=== PATIENT | female | born 1965 | race Caucasian/White ===

== ENCOUNTER 2020-01-08 11:40 | Inpatient (IN) | payer OTHER ==
[2020-01-08] MEDS ORDERED: ACETAMINOPHEN TAB 500 MG TAB PO STA (12:02)
[2020-01-08] MEDS ORDERED: LORazepam 2 MG/ML INJ IV STA (12:03)
--- NOTE | 2020-01-08 12:06 | ED ---
General Adult HPI - General Chief complaint: Shortness of Breath Stated complaint: SOB Time Seen by Provider: 01/08/20 11:45 Source: patient, RN notes reviewed, old records reviewed Mode of arrival: wheelchair Limitations: no limitations - History of Present Illness Initial comments: This a 55-year-old female who presents emergency Department complaining of shortness of breath for 2 days and a low-grade fever as of yesterday. Patient states she's also been very fatigued. Patient states she has been moving for the last few days and is moving out of state to [place]. Patient states she's been under quite a bit of stress and has had a couple of panic attacks as well. Patient also has noticed her heart rate is racing. Patient denies any chest p ain but she states she does feel like it's tight in her chest when she has been having a panic attacks. Patient denies any abdominal pain patient denies nausea vomiting diarrhea. Patient has a headache patient denies numbness weakness. Patient denies any swelling to the legs or calf tenderness. - Related Data Home Medications Medication Instructions Recorded Confirmed No Known Home Medications 01/08/20 01/08/20 Allergies Allergy/AdvReac Type Severity Reaction Status Date / Time Sulfa (Sulfonamide Allergy Rash/Hives Verified 01/08/20 14:41 Antibiotics) Review of Systems ROS Statement: Those systems with pertinent positive or pertinent negative responses have been documented in the HPI. ROS Other: All systems not noted in ROS Statement are negative. Past Medical History Past Medical History: No Reported History History of Any Multi-Drug Resistant Organisms: None Reported Past Surgical History: Section Past Psychological History: Anxiety Smoking Status: Former smoker Past Alcohol Use History: Occasional Past Drug Use History: None Reported General Exam - General Exam Comments Initial Comments: GENERAL: Patient is well-developed and well-nourished. Patient is nontoxic and well- hydrated and is in mild distress. ENT: Neck is soft and supple. No significant lymphadenopathy is noted. Oropharynx is clear. Moist mucous membranes. Neck has full range of motion without eliciting any pain. EYES: The sclera were anicteric and conjunctiva were pink and moist. Extraocular movements were intact and pupils were equal round and reactive to light. Eyelids were unremarkable. PULMONARY: Unlabored respirations. Good breath sounds bilaterally. No audible rales rhon chi or wheezing was noted. CARDIOVASCULAR: Patient is tachycardic ABDOMEN: Soft and nontender with normal bowel sounds. SKIN: Skin is clear with no lesions or rashes and otherwise unremarkable. NEUROLOGIC: Patient is alert and oriented x3. Cranial nerves II through XII are grossly intact. Motor and sensory are also intact. Normal speech, volume and content. Symmetrical smile. MUSCULOSKELETAL: Normal extremities with adequate strength and full range of motion. LYMPHATICS: No significant lymphadenopathy is noted PSYCHIATRIC: Normal psychiatric evaluation. Limitations: no limitations Course Vital Signs 01/08/20 01/08/20 01/08/20 11:42 11:58 12:00 Temperature 100.1 F H Pulse Rate 131 H Respiratory 22 18 18 Rate Blood Pressure 122/75 O2 Sat by Pulse 92 L 93 L 93 L Oximetry 01/08/20 01/08/20 01/08/20 12:30 13:00 13:30 Temperature Pulse Rate 110 H 102 H 92 Respiratory 18 18 16 Rate Blood Pressure 119/82 116/74 O2 Sat by Pulse 96 97 97 Oximetry 01/08/20 01/08/20 14:00 14:22 Temperature 98.5 F Pulse Rate 86 Respiratory 18 Rate Blood Pressure O2 Sat by Pulse 98 Oximetry Medical Decision Making - Medical Decision Making EKG shows sinus tachycardia 160 bpm SC interval 124 tresses 80 QT interval 308 QTC is 428. Patient's EKG shows no ST segment elevation or depression. Chest x-ray shows groundglass infiltrate. Computed tomography scan shows no pulmonary embolism but does show bilateral infiltrates. - Lab Data Result diagrams: 01/08/20 12:12 01/08/20 12:12 Lab Results 01/08/20 01/08/20 01/08/20 Range/Units 12:12 12:12 12:12 WBC 16.2 H (3.8-10.6) k/uL RBC 4.87 (3.80-5.40) m/uL Hgb 15.4 (11.4-16.0) gm/dL Hct 46.8 H (34.0-46.0) % MCV 96.2 (80.0-100.0) fL MCH 31.6 (25.0-35.0) pg MCHC 32.9 (31.0-37.0) g/dL RDW 12.6 (11.5-15.5) % Plt Count 303 (150-450) k/uL Neutrophils % 91 % Lymphocytes % 4 % Monocytes % 2 % Eosinophils % 3 % Basophils % 0 % Neutrophils # 14.8 H (1.3-7.7) k/uL Lymphocytes # 0.6 L (1.0-4.8) k/uL Monocytes # 0.3 (0-1.0) k/uL Eosinophils # 0.5 (0-0.7) k/uL Basophils # 0.0 (0-0.2) k/uL PT 9.7 (9.0-12.0) sec INR 0.9 (<1.2) APTT 26.5 (22.0-30.0) sec D-Dimer 0.87 H (<0.60) mg/L FEU Sodium 133 L (137-145) mmol/L Potassium 4.4 (3.5-5.1) mmol/L Chloride 100 (98-107) mmol/L Carbon Dioxide 23 (22-30) mmol/L Anion Gap 10 mmol/L BUN 6 L (7-17) mg/dL Creatinine 0.51 L (0.52-1.04) mg/dL Est GFR (CKD-EPI)AfAm >90 (>60 ml/min/1.73 sqM) Est GFR (CKD-EPI)NonAf >90 (>60 ml/min/1.73 sqM) Glucose 101 H (74-99) mg/dL Plasma Lactic Acid Ron (0.7-2.0) mmol/L Calcium 9.3 (8.4-10.2) mg/dL Magnesium 1.8 (1.6-2.3) mg/dL Total Bilirubin 1.0 (0.2-1.3) mg/dL AST 20 (14-36) U/L ALT 18 (4-34) U/L Alkaline Phosphatase 64 (38-126) U/L Lactate Dehydrogenase 477 (313-618) U/L C-Reactive Protein 210.9 H (<10.0) mg/L Total Protein 7.1 (6.3-8.2) g/dL Albumin 4.2 (3.5-5.0) g/dL 01/08/20 Range/Units 12:12 WBC (3.8-10.6) k/uL RBC (3.80-5.40) m/uL Hgb (11.4-16.0) gm/dL Hct (34.0-46.0) % MCV (80.0-100.0) fL MCH (25.0-35.0) pg MCHC (31.0-37.0) g/dL RDW (11.5-15.5) % Plt Count (150-450) k/uL Neutrophils % % Lymphocytes % % Monocytes % % Eosinophils % % Basophils % % Neutrophils # (1.3-7.7) k/uL Lymphocytes # (1.0-4.8) k/uL Monocytes # (0-1.0) k/uL Eosinophils # (0-0.7) k/uL Basophils # (0-0.2) k/uL PT (9.0-12.0) sec INR (<1.2) APTT (22.0-30.0) sec D-Dimer (<0.60) mg/L FEU Sodium (137-145) mmol/L Potassium (3.5-5.1) mmol/L Chloride (98-107) mmol/L Carbon Dioxide (22-30) mmol/L Anion Gap mmol/L BUN (7-17) mg/dL Creatinine (0.52-1.04) mg/dL Est GFR (CKD-EPI)AfAm (>60 ml/min/1.73 sqM) Est GFR (CKD-EPI)NonAf (>60 ml/min/1.73 sqM) Glucose (74-99) mg/dL Plasma Lactic Acid Ron 1.0 (0.7-2.0) mmol/L Calcium (8.4-10.2) mg/dL Magnesium (1.6-2.3) mg/dL Total Bilirubin (0.2-1.3) mg/dL AST (14-36) U/L ALT (4-34) U/L Alkaline Phosphatase (38-126) U/L Lactate Dehydrogenase (313-618) U/L C-Reactive Protein (<10.0) mg/L Total Protein (6.3-8.2) g/dL Albumin (3.5-5.0) g/dL Disposition Clinical Impression: Pneumonia Disposition: ADMITTED IP TO THIS [facility] Referrals: Brian Romano MD [Primary Care Provider] - 1-2 days Time of Disposition: 14:44
[2020-01-08 12:24] LABS: Basophils % (A) 0 %; Eosinophils # (A) 0.5 k/uL (0-0.7); Eosinophils % (A) 3 %; HCT 46.8 % (34.0-46.0); HGB 15.4 gm/dL (11.4-16.0); Lymphocytes # (A) 0.6 k/uL (1.0-4.8); Lymphocytes % (A) 4 %; MCH 31.6 pg (25.0-35.0); MCHC 32.9 g/dL (31.0-37.0); MCV 96.2 fL (80.0-100.0); Mean Platelet Volume 7.5; Monocytes # (A) 0.3 k/uL (0-1.0); Monocytes % (A) 2 %; Neutrophils # (A) 14.8 k/uL (1.3-7.7); Neutrophils % (A) 91 %; Platelet Count 303 k/uL (150-450); RBC 4.87 m/uL (3.80-5.40); RDW 12.6 % (11.5-15.5); WBC 16.2 k/uL (3.8-10.6)
[2020-01-08 12:34] LABS: ALT 18 U/L (4-34); AST 20 U/L (14-36); African American GFR (CKD) >90 (>60 ml/min/1.73 sqM); Albumin 4.2 g/dL (3.5-5.0); Alkaline Phosphatase 64 U/L (38-126); Anion Gap 10 mmol/L; Blood Urea Nitrogen 6 mg/dL (7-17); Calcium 9.3 mg/dL (8.4-10.2); Carbon Dioxide 23 mmol/L (22-30); Chloride 100 mmol/L (98-107); Glucose 101 mg/dL (74-99); LDH 477 U/L (313-618); Magnesium 1.8 mg/dL (1.6-2.3); Non-African American GFR(CKD) >90 (>60 ml/min/1.73 sqM); Potassium 4.4 mmol/L (3.5-5.1); Sodium 133 mmol/L (137-145); Total Protein 7.1 g/dL (6.3-8.2)
[2020-01-08 12:46] LABS: INR 0.9 (<1.2); Partial Thromboplastin Time 26.5 sec (22.0-30.0); Prothrombin Time 9.7 sec (9.0-12.0)
--- NOTE | 2020-01-08 13:02 | XR ---
EXAMINATION TYPE: XR chest 1V portable DATE OF EXAM: 01/08/2020 HISTORY: Suspected COVID-19 pneumonia. REFERENCE: NONE. FINDINGS: Lung volumes are prominent. There is patchy peripheral airspace disease seen bilaterally. T he heart is not enlarged. Pleural spaces are clear. IMPRESSION: 1. PATCHY, BILATERAL AIRSPACE DISEASE. 2. PLEASE CORRELATE FOR COPD.
[2020-01-08 13:09] LABS: C Reactive Protein 210.9 mg/L (<10.0)
[2020-01-08 13:26] LABS: D-Dimer 0.87 mg/L FEU (<0.60)
[2020-01-08] MEDS ORDERED: cefTRIAXone IN SWFI 1,000 MG/10 ML SYRINGE IVP STA (13:27)
--- NOTE | 2020-01-08 14:31 | CT ---
EXAMINATION TYPE: CT chest angio for PE DATE OF EXAM: 01/08/2020 COMPARISON: None. HISTORY: Difficulty breathing CT DLP: 215.9 mGycm Automated exposure control for dose reduction was used. CONTRAST: CT Chest for pulmonary embolism performed with with IV Contrast, patient injected with 100 mL of Isov ue 370. FINDINGS: There is apical scarring present bilaterally. There are patchy groundglass opacities in the periphery of both lungs suspicious for Covid 19 infection. There is more confluent disease or atelec tasis at the lung bases bilaterally. There is a 1.2 cm lesion in the right lobe of the thyroid. There is some left axillary adenopathy. The largest lymph node is 6.8 mm in shortest transverse diame ter. There is no cyst significant mediastinal or hilar adenopathy. There is no evidence of pulmonary embolus. Aorta is normal in caliber without evidence of dissection. There are small, bilateral pleural effusions. There is no pericardial fluid the heart is not enlarged . Visualized upper abdominal structures are unremarkable. No bony lesion is seen. IMPRESSION: 1. THIS EXAMINATION IS NEGATIVE FOR PULMONARY EMBOLUS. 2. PATCHY, BILATERAL GROUNDGLASS AIRSPACE DISEASE IS SUSPICIOUS FOR COVID 19 INFECTION. PLEASE CORREL ATE CLINICALLY 3. 1.2 CM RIGHT THYROID LESION. 4. NONSPECIFIC MEDIASTINAL ADENOPATHY. 5. SMALL, BILATERAL PLEURAL EFFUSIONS.
[2020-01-08] MEDS ORDERED: AZITHROMYCIN 500 MG in SODIUM CHLORIDE 0.9% 250 ML IVPB STA (14:44)
[2020-01-08] MEDS ORDERED: PNEUMONIA PROTOCOL UTILIZED 1 EACH MISC PO PRN (14:44)
[2020-01-08 17:09] LABS: Ferritin 167.5 ng/mL (10.0-291.0)
[2020-01-08] MEDS ORDERED: HYDROcodone/APAP 5-325MG 1 EACH TAB PO PRN (17:40)
[2020-01-08] MEDS ORDERED: HYDROmorphone 0.5 MG/0.5 ML SYRINGE IVP PRN (17:40)
[2020-01-08] MEDS ORDERED: ENOXAPARIN 40 MG/0.4 ML SYRINGE SQ SCH (17:45)
--- NOTE | 2020-01-08 18:41 | HP ---
HISTORY AND PHYSICAL CHIEF COMPLAINTS: Shortness of breath, cough and fever. HISTORY OF PRESENT ILLNESS: This 55-year-old woman with a past medical history of anxiety, history of nicotine dependence, being followed by Dr. Julian Romano, not feeling well over the past several days. The patient had a cough, fever and some weakness. The patient also complains of shortness of breath. The patient also complaining of increasing fatigue. The patient came to [facility] with similar complaints and chest x-ray showed bilateral infiltrates and the lab values showed increased WBC, elevated 0.87. C-reactive protein elevated at 210. CT angio showed patchy bilateral ground-glass appearance suspicious for COVID-19. Patient admitted for further evaluation and treatment. 1.2 cm thyroid lesion was also noted to be followed up in the outpatient setting. Small bilateral pleural effusions also noted. The patient was apparently living on [facility] and planning to move to [place] to be with her mother at this time and the patient has been living with her parents for the last couple of days according to her. The patient used to work at [employer], but currently the patient is doing some landscape work. The patient does not have any history of any recent travel or contact with infected persons at this time. There is no history any headache, loss of consciousness, seizures. No history of chest pain, palpitation either. PAST MEDICAL HISTORY: History of anxiety, history of nicotine dependence. MEDICATIONS: None. ALLERGIES: SULFA. FAMILY HISTORY: History of valve replacement with pacemaker. SOCIAL HISTORY: Previous history of smoking. No history of alcohol intake. REVIEW OF SYSTEMS: ENT: No diminished vision. No diminished hearing. CARDIOVASCULAR as mentioned earlier. RESPIRATORY: As mentioned earlier. GI: No nausea or vomiting. no dysuria. NERVOUS SYSTEM: No numbness or weakness. ALLERGY/IMMUNOLOGY: No asthma or hayfever. MUSCULOSKELETAL: As mentioned earlier. DERMATOLOGY: Negative. ENDOCRINE: No history of diabetes or hypothyroidism. CONSTITUTIONAL: As mentioned earlier. DERMATOLOGY: Negative. RHEUMATOLOGY negative. PSYCHIATRY as mentioned earlier. PHYSICAL EXAM: Alert and oriented times three. Pulse 94, blood pressure 114/76, respiration 18, temperature 98.4, pulse ox 98% on 2 L. HEENT: Conjunctivae normal. Oral mucosa moist. Neck is no jugular venous distention. No carotid bruit. No lymph node enlargement. CARDIOVASCULAR: S1, S2 muffled. RESPIRATORY: Breath sounds diminished in the bases. A few scattered rhonchi. No crackles. ABDOMEN: Soft, nontender. No mass palpable. LEGS no edema. No swelling. NERVOUS SYSTEM: Higher functions as mentioned earlier. Moves all 4 limbs. No focal motor or sensory deficits. Lymphatics: No lymph nodes palpable in the neck, axillae or groin. SKIN: No ulcer, no rash and no bleeding. JOINTS no active deforming arthropathy. LABS: WBC 16.2, and INR is 0.9. D-dimer is 0.87. Sodium is 133. C-reactive protein is 210.9. Chest x-ray and CT scan personally reviewed. EKG reviewed and showed nonspecific ST-T changes and QTc of 428. ASSESSMENT: 1. Acute bilateral pneumonia possibly gram-negative, possibly Covid-19 pneumonia. 2. Increased WBC. 3. Increased D-dimer without any evidence of pulmonary embolism. 4. Right thyroid lesion 1.2 cm needs outpatient followup. 5. Hyponatremia. 6. Increased CRP. 7. History of anxiety. 8. History of nicotine dependence. 9. FULL CODE. RECOMMENDATIONS AND DISCUSSION: This 55-year-old woman who presented with multiple complex medical issues, at this time I recommend continue the current medications, continue symptomatic treatment. Recommend broad-spectrum IV antibiotics for presumed pneumonia. COVID-19 test is pending. I would also recommend infectious disease evaluation. I would recommend blood cultures, sputum cultures, and other evaluation to rule out the possibility of Covid-19 as well. LDH is negative. Overall prognosis guarded because of multiple complex medical issues and further recommendations to follow. A copy of this forwarded to Dr. Julian Romano who is the primary physician. MMODL / IJN: [id number] / [facility]
[2020-01-08] MEDS: ALPRAZolam 0.25 MG TAB PO PRN (19:38)
[2020-01-08] MEDS ORDERED: ALBUTEROL NEBULIZED 2.5 MG/3 ML INHALATION SCH (20:00)
[2020-01-08] MEDS: ALBUTEROL HFA INHALER INHALATION SCH (20:17)
[2020-01-08] MEDS: ENOXAPARIN 40 MG/0.4 ML SYRINGE SQ SCH (21:37)
[2020-01-08 23:31] LABS: Appearance,Urine Clear (Clear); Bilirubin,Urine Negative (Negative); Blood,Urine Negative (Negative); Color,Urine Yellow; Glucose,Urine (UA) Negative (Negative); Ketones,Urine 2+ (Negative); Leukocyte Esterase,Urine Negative (Negative); Nitrite,Urine Negative (Negative); PH, Urine 5.5 (5.0-8.0); Protein,Urine Trace (Negative); Specific Gravity,Urine 1.022 (1.001-1.035)
[2020-01-08 23:43] LABS: Amphetamine Screen,Urine Not Detected (NotDetected); Barbiturate Screen,Urine Not Detected (NotDetected); Benzodiazepines Screen,Urine Detected (NotDetected); Cocaine Screen,Urine Not Detected (NotDetected); Methadone Screen, Urine Not Detected (NotDetected); Opiate Screen,Urine Not Detected (NotDetected); Oxycodone Screen, Urine Not Detected (NotDetected); Phencyclidine Screen,Urine Not Detected (NotDetected); Tricyclic Antidepressant,Urine Not Detected (NotDetected); Urn Cannabinoid Scrn Not Detected (NotDetected)
[2020-01-09] MEDS: ACETAMINOPHEN TAB 500 MG TAB PO PRN ×4 (00:33→23:02)
[2020-01-09] MEDS: TEMAZEPAM 15 MG CAP PO PRN (01:25)
[2020-01-09] MEDS: ALPRAZolam 0.25 MG TAB PO PRN (03:43)
[2020-01-09 06:34] LABS: Basophils % (A) 0 %; Eosinophils # (A) 0.4 k/uL (0-0.7); Eosinophils % (A) 3 %; HCT 45.3 % (34.0-46.0); HGB 14.8 gm/dL (11.4-16.0); Lymphocytes # (A) 0.8 k/uL (1.0-4.8); Lymphocytes % (A) 6 %; MCHC 32.6 g/dL (31.0-37.0); MCV 98.3 fL (80.0-100.0); Mean Platelet Volume 7.9; Monocytes # (A) 0.4 k/uL (0-1.0); Monocytes % (A) 3 %; Neutrophils # (A) 11.7 k/uL (1.3-7.7); Neutrophils % (A) 87 %; Platelet Count 278 k/uL (150-450); RBC 4.61 m/uL (3.80-5.40); RDW 12.5 % (11.5-15.5); WBC 13.4 k/uL (3.8-10.6)
[2020-01-09 06:43] LABS: ALT 15 U/L (4-34); AST 17 U/L (14-36); African American GFR (CKD) >90 (>60 ml/min/1.73 sqM); Albumin 3.6 g/dL (3.5-5.0); Alkaline Phosphatase 61 U/L (38-126); Anion Gap 9 mmol/L; Blood Urea Nitrogen 6 mg/dL (7-17); Calcium 8.7 mg/dL (8.4-10.2); Carbon Dioxide 26 mmol/L (22-30); Chloride 98 mmol/L (98-107); Glucose 81 mg/dL (74-99); Non-African American GFR(CKD) >90 (>60 ml/min/1.73 sqM); Potassium 4.3 mmol/L (3.5-5.1); Sodium 133 mmol/L (137-145); Total Bilirubin 0.5 mg/dL (0.2-1.3); Total Protein 6.2 g/dL (6.3-8.2)
--- NOTE | 2020-01-09 06:45 | XR ---
EXAMINATION TYPE: XR chest 1V DATE OF EXAM: 01/09/2020 HISTORY: pneumonia. REFERENCE: Previous study dated 01/08/2020. FINDINGS: The lungs are overinflated but clear. Pleural space are clear. The heart is not enlarged. IMPRESSION: COPD.
[2020-01-09] MEDS: ENOXAPARIN 40 MG/0.4 ML SYRINGE SQ SCH (08:18)
[2020-01-09] MEDS: ALBUTEROL HFA INHALER INHALATION SCH ×4 (08:42→20:57)
[2020-01-09] MEDS: ASCORBIC ACID 500 MG TAB PO SCH (11:49)
[2020-01-09] MEDS: ZINC SULFATE 220 MG CAP PO SCH (12:31)
[2020-01-09] MEDS: dexAMETHasone 4 MG TAB PO SCH (12:31)
[2020-01-09] MEDS: SODIUM CHLORIDE 0.9% 1,000 ML IV SCH (13:53)
[2020-01-09] MEDS: AZITHROMYCIN 500 MG TAB PO SCH (15:44)
[2020-01-09] MEDS: guaiFENesin SYRUP 100MG/5ML 200 MG/10 ML CUP PO PRN ×2 (16:32→23:01)
--- NOTE | 2020-01-09 16:38 | PN ---
PROGRESS NOTE DATE OF SERVICE: 01/09/2020 This 55-year-old woman was admitted with acute bilateral pneumonia, possibly interstitial pneumonia, possibly viral pneumonia and Covid-19 pneumonia strongly suspected but however the testing is pending at this time. Patient started on broad- spectrum IV antibiotics. Patient being closely monitored. Past Medical history reviewed. REVIEW OF SYSTEMS: CARDIOVASCULAR: No angina or palpitations. RESPIRATORY: As mentioned earlier. GI: No nausea, vomiting. no dysuria. Nervous system: No numbness or weakness. CURRENT MEDICATIONS: Reviewed and include: Tylenol, [place], Xanax, vitamin C, Zithromax, Rocephin 1 g and Lovenox, Flovent, Dilaudid, Restoril doses reviewed PHYSICAL EXAM: Patient is alert, oriented x3. Pulse is 105. Blood pressure is 90/56, respiration 20, temperature 100.6, pulse ox 94% on 3 L. HEENT: Conjunctivae normal. NECK: No JVD. CARDIOVASCULAR: S1, S2 muffled. RESPIRATIONS: Breath sounds diminished in the bases. A few scattered rhonchi and crackles. ABDOMEN: Soft, nontender. LEGS: No edema. NERVOUS SYSTEM: No focal deficits. LABS: WBC 13.4, sodium 133. ASSESSMENT: 1. Acute bilateral interstitial pneumonia, possibly Covid-19 pneumonia, viral pneumonia. 2. Increased WBC. 3. Increased D-dimer without any evidence of acute pulmonary embolism. 4. Right thyroid lesion 1.2 cm needs outpatient followup. 5. Hyponatremia. 6. Increased CRP. 7. History of anxiety. 8. History of nicotine dependence. 9. FULL CODE. RECOMMENDATIONS AND DISCUSSION: Recommend to continue current medications, management and symptomatic treatment. Otherwise continue empiric antibiotics. Closely follow with Infectious Disease and Pulmonary. Guarded prognosis because of multiple complex medical issues. Further recommendations to follow. The QTc is 428 milliseconds. Further recommendations to follow. Covid 19 is pending at this time. MMODL / IJN: [id number] / [facility]
--- NOTE | 2020-01-09 20:36 | CONS ---
CONSULTATION PULMONARY/CRITICAL CARE CONSULTATION: DATE OF SERVICE: 01/09/2020 REASON FOR CONSULTATION: Shortness of breath, possible COVID-19 infection. This is a 55-year-old female who has not been feeling well for a number of days now. She apparently has had fever, shortness of breath, cough, chest congestion, muscle aches, fatigue, and joint aches. The patient has been under a lot of stress recently. She has been moving with plans to move down to [place] permanently. Anyway, she feels also that her heart has been racing and she is just quite out of energy. She denied any chest pain. She also denied any genitourinary complaints or GI complaints. The patient did have a headache. She was evaluated in the emergency room on January 07. She was admitted to the hospital with a diagnosis of suspected COVID-19 pneumonia. HOME MEDICATIONS: None. ALLERGIES: SULFA ANTIBIOTICS. PAST SURGICAL HISTORY: Includes only a . PAST MEDICAL HISTORY: Unremarkable. SOCIAL HISTORY: Positive for previous tobacco use. Does not smoke currently. She drinks alcohol occasionally. No illicit drug use. FAMILY HISTORY: Unremarkable. Mother and father were relatively stable, although apparently father had hypertension. REVIEW OF SYSTEMS: CONSTITUTIONAL: Weakness, fatigue, fever. NEUROLOGIC: Lightheadedness. HEENT: Negative. CARDIOVASCULAR: Palpitations and rapid heartbeat. PULMONARY: Shortness of breath, cough, chest tightness, shortness of breath. GI: Negative. : Negative. RHEUMATOLOGIC: Negative. IMMUNOLOGIC: Negative. ENDOCRINOLOGIC: Negative. DERMATOLOGIC: Negative. PHYSICAL EXAMINATION: VITAL SIGNS: Current vital signs are reviewed. Temperature is currently 97.3, T-max was 100.1, heart rate 98, respiratory rate 18, blood pressure 101/67, mean 78, saturations have been anywhere from 88 as a low up to 99 as a high. Currently, she is on 2 L and saturations are 95%. GENERAL: Appears in no acute distress. No obvious respiratory distress. No conversational dyspnea, use of accessory muscles or audible wheezing. HEENT: Examination is grossly unremarkable. NECK: Supple. Full range of motion. No adenopathy. Neck veins are flat. CARDIOVASCULAR: Examination is reveals regular rhythm and rate. Heart rate 90 beats per minute. S1, S2 normal. No murmur. PULMONARY: Lungs do reveal diffuse coarse rhonchi. There are some crackles at the bases. No wheezes. ABDOMEN: Soft. Bowel sounds are heard. EXTREMITIES: Intact. No cyanosis, clubbing, or edema. SKIN: Without rash. NEUROLOGIC: Examination is brief but nonfocal. LABS: Reviewed. White count 13.4, hemoglobin 14.8, hematocrit 45.3, platelet count normal. D-dimer 0.87. PT/INR and PTT all normal. Sodium 133, potassium 4.3, chloride 98, CO2 26, anion gap is 9. BUN and creatinine were 6 and 0.53. Troponins were negative x3. C- reactive protein 210, procalcitonin level 0.10, LDH 335. Urine was negative. Drug screen was positive for benzodiazepine. Microbiology is negative. Current COVID-19 testing is pending. IMAGING: Chest x-ray shows patchy bilateral airspace disease. A CT angiogram was done. It shows no evidence of pulmonary embolism. There was bilateral patchy mostly peripheral ground-glass airspace disease suspicious for COVID-19 pneumonitis. CURRENT MEDICATIONS: Reviewed. The patient is on Tylenol, albuterol inhaler, Xanax, vitamin C, Zithromax, Rocephin, Decadron, Lovenox, fluticasone 2 puffs twice a day, Cucumber, Dilaudid, Restoril, and zinc. ASSESSMENT: 1. Probable COVID-19 pneumonitis based on the patient's clinical presentation, examination, laboratory data and radiographic data. 2. Previous history of tobacco use. 3. No significant past medical history. PLAN: Current medications are appropriate. We will watch patient closely. We did add Decadron at 6 mg a day. We also added vitamin C and zinc. Additional recommendations and suggestions are forthcoming. We will continue to follow. Prognosis is guarded. Should she show signs of deterioration, we would consider remdesivir. Currently, she appears to be relatively stable. We will continue to follow. MMODL / IJN: [id number] /
[2020-01-09] MEDS: FLUTICASONE 110 MCG INHALER INHALATION SCH (20:57)
--- NOTE | 2020-01-10 00:05 | P.CONS ---
History of Present Illness - Reason for Consult Consult date: 01/09/20 Covid 19 pneumonia/ Requesting physician: Fran Day - Chief Complaint Fever and shortness of breath x 2 days - History of Present Illness Patient is a 55-year-old female presenting to the ER at [facility] chief complaint of increasing shortness of breath and fever for the last 2 days patient mentions she has been moving out of the apartment and has been under a lot of stress did have panic episode she's has been combining of increasing shortness of breath for the last 2 days along with a cough which has been moderate intensity with occasional sputum production no hemoptysis denies having pleuritic chest pain no URI symptoms some nausea but no vomiting no abdominal pain no diarrhea with the Center the patient has been evaluative by the physician on arrival to the ER the patient did have a fever of 101F the patient did have elevated white count 16,000 with a left shift patient did have elevated CRP as well as pro-calcitonin, patient chest x-ray was COPD the patient did have a CT angiogram of the chest which was negative for PE however did shows bilateral groundglass opacity and more confluent opacities at the lung bases patient has been started on Rocephin and Zithromax admitted to the hospital infectious disease was consulted for further management of antibiotic therapy Review of Systems Positive point has been mentioned in the HPI rest of the systems are negative Past Medical History Past Medical History: No Reported History History of Any Multi-Drug Resistant Organisms: None Reported Past Surgical History: Section Past Psychological History: Anxiety Smoking Status: Former smoker Past Alcohol Use History: Occasional Past Drug Use History: None Reported - Past Family History Mother Additional Family Medical History / Comment(s): valve replacement with pacemaker Medications and Allergies Home Medications Medication Instructions Recorded Confirmed Type No Known Home Medications 01/08/20 01/08/20 History Allergies Allergy/AdvReac Type Severity Reaction Status Date / Time Sulfa (Sulfonamide Allergy Rash/Hives Verified 01/08/20 14:41 Antibiotics) Physical Exam Vitals: Vital Signs Temp Pulse Resp BP BP Pulse Ox 01/09/20 15:00 100.6 F H 105 H 24 95/64 94 L 01/09/20 11:47 97.3 F L 98 101/67 95 01/09/20 11:40 88 L 01/09/20 07:00 99.5 F 118 H 18 114/63 92 L 01/09/20 04:00 18 01/09/20 00:50 99.0 F 01/09/20 00:29 101.3 F H 120 H 18 117/75 93 L 01/09/20 00:00 18 01/08/20 20:00 18 01/08/20 19:17 99.3 F 79 18 106/69 93 L 01/08/20 16:10 98.4 F 94 18 114/76 99 Intake and Output 01/09/20 01/09/20 01/09/20 06:59 14:59 22:59 Other: # Voids 2 GENERAL DESCRIPTION: Middle-aged female lying in bed, no distress. No tachypnea or accessory muscle of respiration use. HEENT: Shows Pallor , no scleral icterus. Oral mucous membrane is dry. No pharyngeal erythema or thrush NECK: Trachea central, no thyromegaly. LUNGS: Unlabored breathing. Coarse breath sounds at the bases bilaterally. HEART: S1, S2, regular rate and rhythm. No loud murmur ABDOMEN: Soft, no tenderness , guarding or rigidity, no organomegaly EXTREMITIES: No edema of feet. SKIN: No rash, no masses palpable. NEUROLOGICAL: The patient is awake, alert, oriented x3, mood and affect normal. Results CBC & Chem 7: 01/09/20 05:29 01/09/20 05:29 Labs: Abnormal Lab Results - Last 24 Hours (Table) 01/08/20 01/08/20 01/08/20 Range/Units 12:12 23:15 23:15 WBC (3.8-10.6) k/uL Neutrophils # (1.3-7.7) k/uL Lymphocytes # (1.0-4.8) k/uL Sodium (137-145) mmol/L BUN (7-17) mg/dL Total Protein (6.3-8.2) g/dL Procalcitonin 0.10 H (0.02-0.09) ng/mL Urine Protein Trace H (Negative) Urine Ketones 2+ H (Negative) U Benzodiazepines Scrn Detected H (NotDetected) 01/09/20 01/09/20 Range/Units 05:29 05:29 WBC 13.4 H (3.8-10.6) k/uL Neutrophils # 11.7 H (1.3-7.7) k/uL Lymphocytes # 0.8 L (1.0-4.8) k/uL Sodium 133 L (137-145) mmol/L BUN 6 L (7-17) mg/dL Total Protein 6.2 L (6.3-8.2) g/dL Procalcitonin (0.02-0.09) ng/mL Urine Protein (Negative) Urine Ketones (Negative) U Benzodiazepines Scrn (NotDetected) Microbiology - Last 24 Hours (Table) 01/08/20 12:51 Blood Culture - Preliminary Blood No Growth after 24 hours Assessment and Plan Assessment: 1- patient presented to the hospital with sepsis this patient who did have a fever tachycardia and elevated white count source is likely pneumonia likely concerning for bacterial Acute viral pneumonia secondary toCovid 19 not entirely excluded 2- sulfa ALLERGY (1) Sepsis Current Visit: Yes Status: Acute Code(s): A41.9 - SEPSIS, UNSPECIFIED ORGANISM SNOMED Code(s): 24473314 (2) Suspected COVID-19 virus infection Current Visit: Yes Status: Acute Code(s): Z20.828 - CONTACT W AND EXPOSURE TO OTH VIRAL COMMUNICABLE DISEASES SNOMED Code(s): 931994485 (3) Pneumonia Current Visit: Yes Status: Acute Code(s): J18.9 - PNEUMONIA, UNSPECIFIED ORGANISM SNOMED Code(s): 488150170 Plan: 1- we will obtain sputum for Gram stain and culture and check a urine for Legionella antigen 2- Rocephin and Zithromax to continue 3- continue with appropriate isolation until the DELI WORKER swab is back We will follow on clinical condition and cultures to further adjust medication if needed Thank you for this consultation will follow this patient with you Time with Patient: Greater than 30
[2020-01-10 07:59] LABS: Basophils % (A) 0 %; Eosinophils # (A) 0.7 k/uL (0-0.7); Eosinophils % (A) 6 %; HCT 43.7 % (34.0-46.0); HGB 14.3 gm/dL (11.4-16.0); Lymphocytes # (A) 0.9 k/uL (1.0-4.8); Lymphocytes % (A) 8 %; MCH 32.1 pg (25.0-35.0); MCHC 32.8 g/dL (31.0-37.0); MCV 97.8 fL (80.0-100.0); Mean Platelet Volume 7.9; Monocytes # (A) 0.4 k/uL (0-1.0); Monocytes % (A) 4 %; Neutrophils # (A) 8.9 k/uL (1.3-7.7); Neutrophils % (A) 81 %; Platelet Count 319 k/uL (150-450); RBC 4.47 m/uL (3.80-5.40); RDW 12.4 % (11.5-15.5)
[2020-01-10 08:14] LABS: ALT 13 U/L (4-34); AST 12 U/L (14-36); African American GFR (CKD) >90 (>60 ml/min/1.73 sqM); Albumin 3.4 g/dL (3.5-5.0); Alkaline Phosphatase 64 U/L (38-126); Anion Gap 5 mmol/L; Blood Urea Nitrogen 6 mg/dL (7-17); Carbon Dioxide 29 mmol/L (22-30); Chloride 103 mmol/L (98-107); Glucose 98 mg/dL (74-99); Non-African American GFR(CKD) >90 (>60 ml/min/1.73 sqM); Potassium 5.2 mmol/L (3.5-5.1); Sodium 137 mmol/L (137-145); Total Bilirubin 0.4 mg/dL (0.2-1.3)
[2020-01-10] MEDS: ASCORBIC ACID 500 MG TAB PO SCH (08:28)
[2020-01-10] MEDS: ENOXAPARIN 40 MG/0.4 ML SYRINGE SQ SCH (08:29)
[2020-01-10] MEDS: dexAMETHasone 4 MG TAB PO SCH (08:29)
[2020-01-10] MEDS: ZINC SULFATE 220 MG CAP PO SCH (08:29)
[2020-01-10] MEDS: ALBUTEROL HFA INHALER INHALATION SCH ×4 (09:34→21:54)
[2020-01-10] MEDS: FLUTICASONE 110 MCG INHALER INHALATION SCH ×2 (09:35→21:54)
--- NOTE | 2020-01-10 11:00 | ECHOF ---
Referral Reason:elevated d diamer MEASUREMENTS -------- HEIGHT: 157.5 cm WEIGHT: 56.2 kg BP: 107/64 IVSd: 1.0 cm (0.6 - 1.1) LVIDd: 3.8 cm (3.9 - 5.3) LVPWd: 1.0 cm (0.6 - 1.1) IVSs: 1.5 cm LVIDs: 2.3 cm LVPWs: 1.3 cm LA Diam: 2.7 cm (2.7 - 3.8) RVIDd: 2.8 cm (< 3.3) LAESV Index (A-L): 20.11 ml/m Ao Diam: 2.8 cm (2.0 - 3.7) AV Cusp: 2.0 cm (1.5 - 2.6) EPSS: 0.3 cm MV E Demetrius: 0.89 m/s MV DecT: 265 ms MV A Demetrius: 0.73 m/s MV E/A Ratio: 1.21 RAP: 5.00 mmHg RVSP: 17.74 mmHg MV EF SLOPE: 98.48 mm/s (70 - 150) MV EXCURSION: 13.25 mm (> 18.000) FINDINGS -------- Sinus rhythm. This was a technically good study. The left ventricular size is normal. Left ventricular wall thickness is normal. Overall left vent ricular systolic function is normal with, an EF between 60 - 65 %. The right ventricle is normal in size. Normal LA size by volume 22+/-6 ml/m2. The right atrium is normal in size. Interatrial and interventricular septum intact. The aortic valve is trileaflet and appears structurally normal. The mitral valve leaflets are mildly thickened. Trace tricuspid regurgitation present. There is no pulmonic regurgitation present. The aortic root size is normal. Normal inferior vena cava with normal inspiratory collapse consistent with estimated right atrial pre ssure of 5 mmHg. There is no pericardial effusion. CONCLUSIONS -------- 1. The left ventricular size is normal. 2. Left ventricular wall thickness is normal. 3. Overall left ventricular systolic function is normal with, an EF between 60 - 65 %. 4. The aortic valve is trileaflet and appears structurally normal. 5. Trace tricuspid regurgitation present. 6. There is no pericardial effusion. [employer] INTERFERENCE TROUBLE SHOOTER: Mela Fisher RDCS
--- NOTE | 2020-01-10 12:51 | P.PN ---
Subjective Progress Note Date: 01/10/20 Principal diagnosis: COVID 19 infection January 10, 2020 patient seen in follow-up on the general medical surgical floor. Patient is awake and alert, in no acute distress, she is currently on 2 L of oxygen the pulse ox 100%, hemodynamically patient is stable, afebrile. Coughing less, breathing seems to be nonlabored. She remains on a combination of azithromycin and Rocephin and Decadron. Today's labs have been reviewed, show a blood cell count is 11.0, lymphocytes 0.9, sodium is 137, potassium is 5.2, depressed electrolytes and renal profile were unremarkable. Blood culture show no growth. This had no acute events overnight, no reports of nausea vomiting no diarrhea. Echocardiogram has been reviewed showing preserved left ventricle systolic function and EF of 60-65% Objective - Vital Signs Vital signs: Vital Signs Temp 97.8 F 01/10/20 07:00 Pulse 75 01/10/20 08:33 Resp 18 01/10/20 08:33 BP 112/71 01/10/20 07:00 Pulse Ox 100 01/10/20 07:00 Intake & Output 01/09/20 01/10/20 01/10/20 18:59 06:59 18:59 Other: # Voids 4 1 - Exam GENERAL EXAM: Alert, very pleasant, 55-year-old white female, on 2 L of oxygen a pulse ox 100%, resting comfortably in bed, comfortable in no apparent distress. HEAD: Normocephalic/atraumatic. EYES: Normal reaction of pupils, equal size. Conjunctiva pink, sclera white. NOSE: Clear with pink turbinates. THROAT: No erythema or exudates. NECK: No masses, no JVD, no thyroid enlargement, no adenopathy. CHEST: No chest wall deformity. Symmetrical expansion. LUNGS: Equal air entry with no crackles, wheeze, rhonchi or dullness. CVS: Regular rate and rhythm, normal S1 and S2, no gallops, no murmurs, no rubs ABDOMEN: Soft, nontender. No hepatosplenomegaly, normal bowel sounds, no guardi ng or rigidity. EXTREMITIES: No clubbing, no edema, no cyanosis, 2+ pulses and upper and lower extremities. MUSCULOSKELETAL: Muscle strength and tone normal. SPINE: No scoliosis or deformity SKIN: No rashes CENTRAL NERVOUS SYSTEM: Alert and oriented -3. No focal deficits, tone is normal in all 4 extremities. PSYCHIATRIC: Alert and oriented -3. Appropriate affect. Intact judgment and insight. - Labs CBC & Chem 7: 01/10/20 06:48 01/10/20 06:48 Labs: Abnormal Lab Results - Last 24 Hours (Table) 01/10/20 01/10/20 Range/Units 06:48 06:48 WBC 11.0 H (3.8-10.6) k/uL Neutrophils # 8.9 H (1.3-7.7) k/uL Lymphocytes # 0.9 L (1.0-4.8) k/uL Potassium 5.2 H (3.5-5.1) mmol/L BUN 6 L (7-17) mg/dL Creatinine 0.43 L (0.52-1.04) mg/dL AST 12 L (14-36) U/L Total Protein 6.0 L (6.3-8.2) g/dL Albumin 3.4 L (3.5-5.0) g/dL Microbiology - Last 24 Hours (Table) 01/08/20 12:51 Blood Culture - Preliminary Blood No Growth after 24 hours Assessment and Plan Plan: Assessment: #1. Suspected Covid 19 viral infection, COVID 19 PCR is pending. Patient presented to the hospital with a fever, tachycardia, patchy bilateral airspace disease, and patchy bilateral groundglass airspace disease and the CTA chest, specific mediastinal adenopathy and small bilateral pleural effusions #2. Rule out possibility of underlying bacterial pneumonia, Legionella urine antigen is pending, although pro-calcitonin level was not significantly elevated only at 0.10. Patient is covered with a combination of azithromycin and Rocephin #3. Previous history of tobacco use currently in remission #4. Mild leukocytosis improving #5. Mild elevation of d-dimer 0.87, CTA chest did not show any evidence of p ulmonary embolism, CRP elevated at 210, and LDH is 335 with the possibility of Covid 19 related infection Plan: Continue current medical treatment, he is maintaining stable O2 saturations on 2 L, afebrile, she looks comfortable, no worsening dyspnea, no acute events overnight. She continues on combination of azithromycin and Rocephin. Her pro- calcitonin level was not elevated and was only at 0.10. Overall feeling better. No nausea vomiting no diarrhea. Continue bronchodilators. We'll continue to follow I performed a history & physical examination of the patient and discussed their management with my nurse practitioner, Yadi Mendoza. I reviewed the nurse practitioner's note and agree with the documented findings and plan of care. Lung sounds are positive for diminished. The findings and the impression was discussed with the patient. I attest to the documentation by the nurse practitioner. Time with Patient: Less than 30
[2020-01-10] MEDS: AZITHROMYCIN 500 MG TAB PO SCH (14:43)
--- NOTE | 2020-01-10 17:35 | PN ---
PROGRESS NOTE DATE OF SERVICE: 01/10/2020 This 55-year-old woman who was admitted with acute bilateral pneumonia, possible interstitial pneumonia, has strongly suspect viral pneumonia and COVID-19. The testing is pending at this time. The most recent chest x-ray, which was done yesterday, showed bilateral lesions. Multiple consultants are following the patient closely, including Pulmonary. A 2D echo with Doppler was done by Cardiology which showed an ejection fraction 60% to 65%. Nonspecific mediastinal adenopathy was noted. No chest pain. No palpitation. Past medical history reviewed. REVIEW OF SYSTEMS: CARDIOVASCULAR SYSTEM: No angina, palpitations. RESPIRATORY SYSTEM: As mentioned earlier. GI: As mentioned earlier. : No dysuria or retention. NERVOUS SYSTEM: No numbness, weakness. CURRENT MEDICATIONS: Reviewed. They include: 1. Tylenol p.r.n. 2. Waldron 5 mg q.6 p.r.n. 3. Xanax 0.25 t.i.d. 4. Vitamin C. 5. Zithromax. 6. Rocephin. 7. Hexadrol. 8. Lovenox. 9. Flovent. 10.Robitussin. 11.Dilaudid. 12.Mycostatin. 13.Restoril. 14.Orazinc. Doses are reviewed. PHYSICAL EXAMINATION: Patient is alert, oriented x3. Pulse 75, blood pressure 112/75, respiration 18, temperature 97.8, pulse ox 100% on 2 L. HEENT: Conjunctivae normal. NECK: No jugular venous distention. CARDIOVASCULAR SYSTEM: S1, S2 muffled. RESPIRATORY SYSTEM: Breath sounds diminished at the bases. Bilateral scattered rhonchi and crackles. ABDOMEN: Soft, non-tender. LEGS: No edema. No swelling. NERVOUS SYSTEM: Higher functions as mentioned earlier. Moves all 4 limbs. No focal motor or sensory deficit. LYMPHATICS: No lymph node palpable in neck, axillae or groin. SKIN: No ulcer, rash, bleeding. JOINTS: No active deforming arthropathy. LABS: WBC 11, hemoglobin 14.3, sodium 137, potassium 5.2, albumin 3.4. ASSESSMENT: 1. Acute bilateral interstitial pneumonia, possibly COVID-19 pneumonia and viral pneumonia. 2. Increased white count. 3. Increased D-dimer without any evidence of acute pulmonary embolism. 4. Right thyroid lesion, 1.2 cm. Needs outpatient followup CT scan. 5. Hyponatremia. 6. Increased CRP. 7. History of anxiety. 8. History of nicotine dependence. 9. FULL CODE. RECOMMENDATIONS AND DISCUSSION: In this 55-year-old woman who presented with multiple complex medical issues, we will monitor the patient closely, continue the current medications, continue symptomatic treatment. Otherwise at this time I recommend continuing with the bronchodilators. Empiric antibiotics. Repeat labs. Await COVID-19 testing. Guarded prognosis. Further recommendations to follow. Closely follow with Pulmonary. MMODL / IJN: [id number] / SERGIO
[2020-01-10] MEDS: NYSTATIN 100,000 UNIT/ML SUSP 500,000 UNIT/5 ML CUP PO SCH ×2 (17:38→20:28)
[2020-01-10] MEDS: SODIUM CHLORIDE 0.9% 1,000 ML IV SCH (20:27)
[2020-01-10] MEDS: ALPRAZolam 0.25 MG TAB PO PRN (22:55)
--- NOTE | 2020-01-10 23:08 | PN ---
PROGRESS NOTE DATE OF SERVICE: 01/10/2020 REASON FOR FOLLOWUP: Pneumonia. INTERVAL HISTORY: The patient is currently afebrile. The patient is breathing slightly comfortably. The patient's cough has decreased in intensity, less purulent now. No nausea, no vomiting. No abdominal pain or diarrhea. PHYSICAL EXAMINATION: Blood pressure 109/70 with a pulse of 82, temperature 98.1. She is 95% on 2 L nasal cannula. General description is a middle-aged female up in the bed in no distress. RESPIRATORY SYSTEM: Unlabored breathing with decreased intensity of breath sounds. No wheeze. HEART: S1, S2. Regular rate and rhythm. ABDOMEN: Soft. No tenderness. LABS: Hemoglobin is 14.8, white count 11, BUN of 6, creatinine 0.43. Urine for Legionella antigen was requested and is currently pending. COVID-19 testing is pending as well. DIAGNOSTIC IMPRESSION AND PLAN: Patient admitted to hospital with fever and a concern for pneumonia with concern for possible atypical bacterial pneumonia. Urine for Legionella antigen is pending. Patient to continue Rocephin and Zithromax. Monitor clinical course closely. MMODL / IJN: [id number] /
[2020-01-11] MEDS: TEMAZEPAM 15 MG CAP PO PRN (00:35)
[2020-01-11] MEDS: guaiFENesin SYRUP 100MG/5ML 200 MG/10 ML CUP PO PRN ×2 (05:00→22:09)
[2020-01-11] MEDS: SODIUM CHLORIDE 0.9% 1,000 ML IV SCH ×2 (05:00→21:03)
[2020-01-11 06:52] LABS: Basophils # (A) 0.1 k/uL (0-0.2); Basophils % (A) 1 %; Eosinophils # (A) 0.8 k/uL (0-0.7); Eosinophils % (A) 8 %; HGB 13.4 gm/dL (11.4-16.0); Lymphocytes # (A) 1.8 k/uL (1.0-4.8); Lymphocytes % (A) 16 %; MCH 31.3 pg (25.0-35.0); MCHC 31.8 g/dL (31.0-37.0); MCV 98.2 fL (80.0-100.0); Mean Platelet Volume 7.1; Monocytes # (A) 0.5 k/uL (0-1.0); Monocytes % (A) 5 %; Neutrophils # (A) 7.7 k/uL (1.3-7.7); Neutrophils % (A) 69 %; Platelet Count 308 k/uL (150-450); RBC 4.28 m/uL (3.80-5.40); RDW 12.6 % (11.5-15.5); WBC 11.1 k/uL (3.8-10.6)
--- NOTE | 2020-01-11 06:58 | XR ---
EXAMINATION TYPE: XR chest 1V portable DATE OF EXAM: 01/11/2020 HISTORY: Shortness of breath. COMPARISON: January 09, 2020 TECHNIQUE: Single view of the chest is submitted. FINDINGS: Demonstrated are scattered senescent parenchymal change. Smaller right lower lobe infiltrate with small effusion. The heart is stable. Hilar and mediastinal structures are within normal limits. Degenerative changes are seen of the dorsal spine. IMPRESSION: 1. Smaller right lower lobe infiltrate with small effusion.
[2020-01-11 07:14] LABS: ALT 12 U/L (4-34); AST 13 U/L (14-36); African American GFR (CKD) >90 (>60 ml/min/1.73 sqM); Albumin 3.1 g/dL (3.5-5.0); Alkaline Phosphatase 53 U/L (38-126); Anion Gap 5 mmol/L; Blood Urea Nitrogen 8 mg/dL (7-17); Calcium 8.8 mg/dL (8.4-10.2); Carbon Dioxide 27 mmol/L (22-30); Chloride 106 mmol/L (98-107); Glucose 78 mg/dL (74-99); Non-African American GFR(CKD) >90 (>60 ml/min/1.73 sqM); Sodium 138 mmol/L (137-145); Total Bilirubin 0.3 mg/dL (0.2-1.3); Total Protein 5.5 g/dL (6.3-8.2)
[2020-01-11] MEDS: ALBUTEROL HFA INHALER INHALATION SCH ×4 (07:21→19:20)
[2020-01-11] MEDS: FLUTICASONE 110 MCG INHALER INHALATION SCH ×2 (07:21→19:20)
[2020-01-11] MEDS: ASCORBIC ACID 500 MG TAB PO SCH (08:09)
[2020-01-11] MEDS: NYSTATIN 100,000 UNIT/ML SUSP 500,000 UNIT/5 ML CUP PO SCH ×4 (08:09→21:03)
[2020-01-11] MEDS: dexAMETHasone 4 MG TAB PO SCH (08:10)
[2020-01-11] MEDS: ZINC SULFATE 220 MG CAP PO SCH (08:11)
[2020-01-11] MEDS: ENOXAPARIN 40 MG/0.4 ML SYRINGE SQ SCH (08:11)
--- NOTE | 2020-01-11 12:55 | P.PN ---
Subjective Progress Note Date: 01/11/20 Principal diagnosis: COVID 19 infection January 10, 2020 patient seen in follow-up on the general medical surgical floor. Patient is awake and alert, in no acute distress, she is currently on 2 L of oxygen the pulse ox 100%, hemodynamically patient is stable, afebrile. Coughing less, breathing seems to be nonlabored. She remains on a combination of azithromycin and Rocephin and Decadron. Today's labs have been reviewed, show a blood cell count is 11.0, lymphocytes 0.9, sodium is 137, potassium is 5.2, depressed electrolytes and renal profile were unremarkable. Blood culture show no growth. This had no acute events overnight, no reports of nausea vomiting no diarrhea. Echocardiogram has been reviewed showing preserved left ventricle systolic function and EF of 60-65% On 01/11/2020 patient seen in follow-up on the general medical surgical floor. Her Covid 19 testing came back negative. The patient is stable, room air pulse ox is 97%, she does have some limited cough, and she short of breath with exertion, but appears to be pretty comfortable at rest, afebrile. She states she could not sleep well at night, feels little tired, denies any chest discomfort, today's labs have been reviewed, showing well until, of 11.1, hemoglobin of 13.1, electrolytes and renal profile were unremarkable, blood cultures have been negative, vital signs have been stable, she remains on a combination of azithromycin and Rocephin, gentle IV hydration, GI and DVT prophylaxis, remains stable overnight. Objective - Vital Signs Vital signs: Vital Signs Temp 97.8 F 01/11/20 07:59 Pulse 84 01/11/20 08:13 Resp 18 01/11/20 08:13 BP 130/80 01/11/20 07:59 Pulse Ox 97 01/11/20 07:59 Intake & Output 01/10/20 01/11/20 01/11/20 18:59 06:59 18:59 Intake Total 400 Balance 400 Intake: Intake, IV Titration 400 Amount Sodium Chloride 0.9% 1, 350 000 ml @ 50 mls/hr IV . Q20H [facility] Rx#:[id number] cefTRIAXone 1 gm In 50 Sodium Chloride 0.9% 50 ml @ 100 mls/hr IVPB Q24HR [facility] Rx#:[id number] - Exam GENERAL EXAM: Alert, very pleasant, 55-year-old white female, on room air pulse ox of 97%, resting comfortably in bed, comfortable in no apparent distress. HEAD: Normocephalic/atraumatic. EYES: Normal reaction of pupils, equal size. Conjunctiva pink, sclera white. NOSE: Clear with pink turbinates. THROAT: No erythema or exudates. NECK: No masses, no JVD, no thyroid enlargement, no adenopathy. CHEST: No chest wall deformity. Symmetrical expansion. LUNGS: Equal air entry with no crackles, wheeze, rhonchi or dullness. CVS: Regular rate and rhythm, normal S1 and S2, no gallops, no murmurs, no rubs ABDOMEN: Soft, nontender. No hepatosplenomegaly, normal bowel sounds, no guarding or rigidity. EXTREMITIES: No clubbing, no edema, no cyanosis, 2+ pulses and upper and lower extremities. MUSCULOSKELETAL: Muscle strength and tone normal. SPINE: No scoliosis or deformity SKIN: No rashes CENTRAL NERVOUS SYSTEM: Alert and oriented -3. No focal deficits, tone is normal in all 4 extremities. PSYCHIATRIC: Alert and oriented -3. Appropriate affect. Intact judgment and insight. - Labs CBC & Chem 7: 01/11/20 06:39 01/11/20 06:39 Labs: Abnormal Lab Results - Last 24 Hours (Table) 01/11/20 01/11/20 Range/Units 06:39 06:39 WBC 11.1 H (3.8-10.6) k/uL Eosinophils # 0.8 H (0-0.7) k/uL Creatinine 0.47 L (0.52-1.04) mg/dL AST 13 L (14-36) U/L Total Protein 5.5 L (6.3-8.2) g/dL Albumin 3.1 L (3.5-5.0) g/dL Microbiology - Last 24 Hours (Table) 01/08/20 12:51 Blood Culture - Preliminary Blood No Growth after 48 hours Assessment and Plan Plan: Assessment: #1. Shortness of breath, fever, and patchy bilateral groundglass airspace disease that was initially suspected to be Covid 19 related pneumonitis, however COVID 19 PCR came back negative. Possibility of atypical pneumonia, or another viral infection is considered, and patient is covered with a culmination of azithromycin and Rocephin. Legionella urine antigen came back negative #2. Legionella pneumonia has been ruled out #3. Previous history of tobacco use currently in remission #4. Mild leukocytosis improving #5. Mild elevation of d-dimer 0.87, CTA chest did not show any evidence of pulmonary embolism, CRP elevated at 210, and LDH is 335 with the possibility of Covid 19 related infection Plan: Patient is doing well, she is on room air, increase activity as tolerated, continuing current antibiotics, from pulmonary perspective patient can be considered for discharge home in the next 24 hours she continues to improve, her Covid 19 PCR came back negative, suggest patient has a antibody test once her symptoms completely resolved. I performed a history & physical examination of the patient and discussed their management with my nurse practitioner, Yadi Mendoza. I reviewed the nurse practitioner's note and agree with the documented findings and plan of care. Lung sounds are positive for diminished. The findings and the impression was discussed with the patient. I attest to the documentation by the nurse practitioner. Time with Patient: Less than 30
[2020-01-11] MEDS: AZITHROMYCIN 500 MG TAB PO SCH (14:45)
[2020-01-11] MEDS: ALPRAZolam 0.25 MG TAB PO PRN ×2 (14:45→22:09)
--- NOTE | 2020-01-11 17:31 | PN ---
PROGRESS NOTE DATE OF SERVICE: 01/11/2020 This is a 55-year-old woman who was admitted with bilateral interstitial pneumonia with suspected COVID, but; however, COVID-19 test is negative, which could be false negative. The patient is on symptomatic treatment, patient is being closely monitored. No chest pain. No palpitations. PAST MEDICAL HISTORY: Reviewed. PHYSICAL EXAM: The patient is alert and oriented x3. Pulse 84, blood pressure 130/80, respiration 18, temperature 97.8, pulse ox 97% on room air. HEENT: Conjunctivae normal. NECK: No jugular venous distension. CARDIOVASCULAR: S1, S2, muffled. RESPIRATION: Breath sounds diminished at the bases, no scattered rhonchi, no crackles. ABDOMEN: Soft, nontender. LEGS: No edema. No swelling. NERVOUS SYSTEM: No focal deficits. LABS: A 2D echo with Doppler, showed ejection fraction 60%-65%. The D-dimer is 0.87. ESR is 17 and CRP was 210, the LDH was normal. ASSESSMENT: 1. Acute bilateral interstitial pneumonia, possibly KOVID-19 pneumonia, bilateral pneumonia. COVID test is negative, could be a false negative. 2. Increased WBC. 3. Increased D-dimer without any evidence of acute pulmonary embolism. 4. Right thyroid lesion 1.2 cm, needs outpatient followup and CAT scan. 5. Hyponatremia. 6. Increased CRP. 7. History of anxiety. 8. History of nicotine dependence. 9. FULL CODE. RECOMMENDATION: I recommend to continue current management and symptomatic treatment. Otherwise, will continue with the antibiotics. The rest of the medications. Increase ambulation and follow closely with Pulmonary and once the pulmonary is cleared, the patient will be able to be discharged home. Prognosis guarded. Further recommendation to follow. MMODL / IJN: [id number] /
--- NOTE | 2020-01-11 22:01 | PN ---
PROGRESS NOTE DATE OF SERVICE: 01/11/2020 REASON FOR FOLLOWUP: Pneumonia. INTERVAL HISTORY: Patient is currently afebrile. Patient is breathing comfortably. The patient denies having any chest pain. She did have a cough, though decreased in intensity. No nausea, no vomiting. No abdominal pain or diarrhea. PHYSICAL EXAMINATION: Blood pressure 119/79 with a pulse of 104, temperature 98.3. She is 94% on room air. General description is a middle-aged female up in the bed in no distress. Respiratory system: Unlabored breathing, decreased intensity of breath sounds. No wheeze. Heart S1, S2. Regular rate and rhythm. Abdomen is soft, no tenderness. LABS: Hemoglobin 13.4, white count 11.1 with BUN of 8, creatinine 0.47. DIAGNOSTIC IMPRESSION AND PLAN: Patient with acute pneumonia, possible community-acquired. The patient has shown overall clinical improvement on the Rocephin and Zithromax. To continue to finish therapy with oral antibiotics and monitor clinical course closely. MMODL / IJN: [id number] /
[2020-01-12] MEDS: ACETAMINOPHEN TAB 500 MG TAB PO PRN (05:06)
[2020-01-12] MEDS: ALPRAZolam 0.25 MG TAB PO PRN (05:14)
[2020-01-12 07:13] VITALS: BP 130/79; PULSE 72; RESP 17; TEMP 98.2
[2020-01-12] MEDS: ALBUTEROL HFA INHALER INHALATION SCH ×2 (07:55→11:31)
[2020-01-12] MEDS: FLUTICASONE 110 MCG INHALER INHALATION SCH (07:56)
[2020-01-12] MEDS: ZINC SULFATE 220 MG CAP PO SCH (09:22)
[2020-01-12] MEDS: ASCORBIC ACID 500 MG TAB PO SCH (09:22)
[2020-01-12] MEDS: ENOXAPARIN 40 MG/0.4 ML SYRINGE SQ SCH ×2 (09:22→09:24)
[2020-01-12] MEDS: NYSTATIN 100,000 UNIT/ML SUSP 500,000 UNIT/5 ML CUP PO SCH ×2 (09:22→13:26)
[2020-01-12] MEDS: dexAMETHasone 4 MG TAB PO SCH (09:22)
--- NOTE | 2020-01-12 13:37 | P.PN ---
Subjective Progress Note Date: 01/12/20 Principal diagnosis: COVID 19 infection January 10, 2020 patient seen in follow-up on the general medical surgical floor. Patient is awake and alert, in no acute distress, she is currently on 2 L of oxygen the pulse ox 100%, hemodynamically patient is stable, afebrile. Coughing less, breathing seems to be nonlabored. She remains on a combination of azithromycin and Rocephin and Decadron. Today's labs have been reviewed, show a blood cell count is 11.0, lymphocytes 0.9, sodium is 137, potassium is 5.2, depressed electrolytes and renal profile were unremarkable. Blood culture show no growth. This had no acute events overnight, no reports of nausea vomiting no diarrhea. Echocardiogram has been reviewed showing preserved left ventricle systolic function and EF of 60-65% On 01/11/2020 patient seen in follow-up on the general medical surgical floor. Her Covid 19 testing came back negative. The patient is stable, room air pulse ox is 97%, she does have some limited cough, and she short of breath with exertion, but appears to be pretty comfortable at rest, afebrile. She states she could not sleep well at night, feels little tired, denies any chest discomfort, today's labs have been reviewed, showing well until, of 11.1, hemoglobin of 13.1, electrolytes and renal profile were unremarkable, blood cultures have been negative, vital signs have been stable, she remains on a combination of azithromycin and Rocephin, gentle IV hydration, GI and DVT prophylaxis, remains stable overnight. On 01/12/2020 patient seen in follow-up on general medical surgical floor. She is doing well, is currently on room air, pulse ox is 99%, denies any chest discomfort, denies any worsening dyspnea, breathing seems to be comfortable, no fever or chills, some exertional dyspnea, otherwise no specific complaints. Her cough has improved, there is been no nausea vomiting diarrhea, no abdominal pain. His CRP has significantly improved, and is down to 32.9 on today's labs, patient remains on empiric antibiotics, her Legionella urine antigen was negative. No acute events overnight, she is anticipated to be discharged home today Objective - Vital Signs Vital signs: Vital Signs Temp 98.2 F 01/12/20 07:00 Pulse 72 01/12/20 07:00 Resp 17 01/12/20 07:00 BP 130/79 01/12/20 07:00 Pulse Ox 99 01/12/20 07:00 Intake & Output 01/11/20 01/12/20 01/12/20 18:59 06:59 18:59 Intake Total 1080 1400 Balance 1080 1400 Intake: Intake, IV Titration 600 Amount Sodium Chloride 0.9% 1, 600 000 ml @ 50 mls/hr IV . Q20H NEHEMIAS Rx#:[id number] Oral 1080 800 Other: # Voids 3 3 - Exam GENERAL EXAM: Alert, very pleasant, 55-year-old white female, on room air pulse ox of 97%, resting comfortably in bed, comfortable in no apparent distress. HEAD: Normocephalic/atraumatic. EYES: Normal reaction of pupils, equal size. Conjunctiva pink, sclera white. NOSE: Clear with pink turbinates. THROAT: No erythema or exudates. NECK: No masses, no JVD, no thyroid enlargement, no adenopathy. CHEST: No chest wall deformity. Symmetrical expansion. LUNGS: Equal air entry with no crackles, wheeze, rhonchi or dullness. CVS: Regular rate and rhythm, normal S1 and S2, no gallops, no murmurs, no rubs ABDOMEN: Soft, nontender. No hepatosplenomegaly, normal bowel sounds, no guarding or rigidity. EXTREMITIES: No clubbing, no edema, no cyanosis, 2+ pulses and upper and lower extremities. MUSCULOSKELETAL: Muscle strength and tone normal. SPINE: No scoliosis or deformity SKIN: No rashes CENTRAL NERVOUS SYSTEM: Alert and oriented -3. No focal deficits, tone is normal in all 4 extremities. PSYCHIATRIC: Alert and oriented -3. Appropriate affect. Intact judgment and insight. - Labs CBC & Chem 7: 01/11/20 06:39 01/11/20 06:39 Labs: Abnormal Lab Results - Last 24 Hours (Table) 01/12/20 Range/Units 08:19 C-Reactive Protein 32.9 H (<10.0) mg/L Microbiology - Last 24 Hours (Table) 01/08/20 12:51 Blood Culture - Preliminary Blood No Growth after 72 hours Assessment and Plan Plan: Assessment: #1. Shortness of breath, fever, and patchy bilateral groundglass airspace disease that was initially suspected to be Covid 19 related pneumonitis, however COVID 19 PCR came back negative. Possibility of atypical pneumonia, or another viral infection is considered, and patient is covered with a culmination of azithromycin and Rocephin. Legionella urine antigen came back negative #2. Legionella pneumonia has been ruled out #3. Previous history of tobacco use currently in remission #4. Mild leukocytosis improving #5. Mild elevation of d-dimer 0.87, CTA chest did not show any evidence of pulmonary embolism, CRP elevated at 210, and LDH is 335 with the possibility of Covid 19 related infection Plan: Patient is stable for discharge home today, as remains stable overnight, no fever or chills, her cough is improving, no chest pain, no nausea vomiting diarrhea. Patient was advised to wait until complete resolution of her symptoms to move down to [place]. She is clinically stable, increase activity as tolerated. I performed a history & physical examination of the patient and discussed their management with my nurse practitioner, Yadi Mendoza. I reviewed the nurse practitioner's note and agree with the documented findings and plan of care. Lung sounds are positive for diminished. The findings and the impression was discussed with the patient. I attest to the documentation by the nurse practitioner. Time with Patient: Less than 30
--- NOTE | 2020-01-12 16:41 | P.DS ---
Providers Date of admission: 01/08/20 14:44 Expected date of discharge: 01/12/20 Attending physician: Fran Day Consults: 01/08/20 14:44 Consult Physician Routine Consulting Provider: Jamin Richards Consult Reason/Comments: Pneumonia Do you want consulting provider notified?: Yes 01/08/20 16:50 Consult Physician Routine Consulting Provider: Hal Sosa Consult Reason/Comments: rule out covid Do you want consulting provider notified?: Yes Primary care physician: Brian Romano [facility] Course: Final diagnosis Acute bilateral interstitial pneumonia, possibly Covid 19 pneumonia, bilateral pneumonia. Covid testing was negative, could be a false negative Increased white blood count Increased d-dimer without any evidence of acute pulmonary embolism Right thyroid lesion 1.2 cm, needs outpatient follow-up CAT scan Hyponatremia Increased CRP History of anxiety History of nicotine dependence Full code Discharge disposition Patient is being discharged in a stable condition with guarded prognosis to home. Patient will follow-up with Dr. Romano in the outpatient setting upon discharge. Patient is to continue with a short course of oral antibiotics in the form of azithromycin 500 mg daily for the next 4 days to complete a course along with a prednisone taper. Patient instructed to continue to isolate for an additional week and until clearance of symptoms for at least 3 days. Total time taken is greater than 35 minutes. History of present illness This is a 55-year-old female who was recently admitted with bilateral interstitial pneumonia with suspected Covid and was being closely monitored. Patient had Covid testing which was negative but could possibly be a false negative. Patient was currently maintained on breathing inhalational treatments along with steroids and antibiotics. Patient will continue with oral antibiotics in the form of azithromycin 500 mg daily for the next 4 days along with a Medrol Dosepak and was provided inhalers. Patient was seen and evaluated by pulmonary. Patient continues to have some anxiety given current personal issues along with living situation and will be moving down to [place] with her mother to care for her. A prescription for Xanax was provided. Patient instructed to follow-up with her primary care provider in the outpatient setting upon discharge. Currently no reports of chest pain, worsening shortness of breath, or palpitations. Patient is afebrile. No reports of nausea or vomiting and patient is tolerating diet. Patient will be discharged home today. Patient instructed to continue to isolate for an additional one week and continue until symptom-free for at least 3 days. On exam vital signs are stable. Temp is 98.2F, pulse is 72, respirations are 17, blood pressure is 130/79, oxygen saturation is 99% on room air. Cardio S1, S2 are muffled. Respiratory system shows diminished breath sounds at the bases with some scattered rhonchi noted. Abdomen is soft and nontender. Nervous system shows no focal deficits. Please refer to medication reconciliation sheet for a list of medications. Patient Condition at Discharge: Fair Plan - Discharge Summary Discharge Rx Participant: Yes New Discharge Prescriptions: New methylPREDNISolone Dose Pack [Medrol Dose Pack] 4 mg PO DIRECTED #21 package Nystatin 100,000 Unit/ml Susp [Mycostatin Oral Susp] 500,000 unit PO QID #100 ml Zinc Sulfate [Orazinc] 220 mg PO DAILY 30 Days #30 cap guaiFENesin SYRUP 100MG/5ML [Robitussin] 200 mg PO TID PRN #120 ml PRN Reason: Cough Albuterol Inhaler [Ventolin Hfa Inhaler] 2 puff INHALATION RT-QID 30 Days #1 puff Ascorbic Acid [Vitamin C] 500 mg PO DAILY 30 Days #30 tab ALPRAZolam [Xanax] 0.25 mg PO TID PRN #12 tab PRN Reason: Anxiety Azithromycin [Zithromax] 500 mg PO DAILY@1500 4 Days #4 tab Discharge Medication List ALPRAZolam [Xanax] 0.25 mg PO TID PRN #12 tab 01/12/20 [Rx] Albuterol Inhaler [Ventolin Hfa Inhaler] 2 puff INHALATION RT-QID 30 Days #1 puff 01/12/20 [Rx] Ascorbic Acid [Vitamin C] 500 mg PO DAILY 30 Days #30 tab 01/12/20 [Rx] Azithromycin [Zithromax] 500 mg PO DAILY@1500 4 Days #4 tab 01/12/20 [Rx] Nystatin 100,000 Unit/ml Susp [Mycostatin Oral Susp] 500,000 unit PO QID #100 ml 01/12/20 [Rx] Zinc Sulfate [Orazinc] 220 mg PO DAILY 30 Days #30 cap 01/12/20 [Rx] guaiFENesin SYRUP 100MG/5ML [Robitussin] 200 mg PO TID PRN #120 ml 01/12/20 [Rx] methylPREDNISolone Dose Pack [Medrol Dose Pack] 4 mg PO DIRECTED #21 package 01/12/20 [Rx] Follow up Appointment(s)/Referral(s): Brian Romano MD [Primary Care Provider] - 1-2 days (office will call with appointment time) Patient Instructions/Handouts: Viral Pneumonia (DC) Activity/Diet/Wound Care/Special Instructions: Indigent form placed in chart Faxed prescriptions to [facility] Activity Limited until follow-up Continue with antibiotics until finished Continue to isolate for 1 week Follow-up with primary care provider upon discharge Discharge Disposition: HOME SELF-CARE
--- NOTE | 2020-01-14 05:31 | CDI ---
Documentation Clarification Form Date: 01/14/2020 From: Elizabeth Ng Phone: If you have a question about this query, please contact Yamel Jhonson Cyberathlete at [phone] between 8am and 5pm. Admit Date: 01/08/2020 Discharge Date: 01/12/2020 Patient Name: Maria Roger Visit Number: [id number] ATTENTION: The Clinical Documentation Specialists (CDI) and [facility] Coding Staff appreciate your assistance in clarifying documentation. Please respond to the clarification below the line at the bottom and electronically sign. The CDI & [facility] Coding staff will review the response and follow-up if needed. Please note: Queries are made part of the Legal Health Record. If you have any questions, please contact the author of this message via ITS. Dear Fran Barajas MD., The patient presented with Acute Bilateral pneumonia. Covid false negative per DS. History/Risk Factors: Bilateral pneumonia, COPD, Pleural effusion, Anxiety WBC : 16.2H Lactic acid: 1.0H Blood cultures: Negative Vitals signs on admission: Temperature 100.1 F H Pulse Rate 131 H Respiratory 22 18 18 Rate Blood Pressure 122/75 O2 Sat by Pulse 92 L 93 L 93 L Treatment: Rocephin and Zithromax, continue with appropriate isolation until the ENGINEERING TECHNOLOGIST swab is back Per 01/08 Hal Arcos MD Notes mentioned "patient presented to the hospital with sepsis this patient who did have afever tachycardia and elevated white count source is likely pneumonia likely concerning for bacterial Acute viral pneumonia secondary toCovid 19 not entirely excluded". In your professional opinion, please clarify the Condition presence? Condition Sepsis ruled out SIRS, without underlying infectious process Sepsis Severe Sepsis Septic Shock Other, please specify Unable to determine Sepsis MTDD
--- NOTE | 2020-01-14 15:37 | P.PN ---
Progress Note - Text Progress Note Date: 01/12/20 REASON FOR FOLLOWUP: Pneumonia. INTERVAL HISTORY: Patient remains to be afebrile. Patient is breathing comfortably. The patient denies having any chest pain. She cough has decreased in intensity. No nausea, no vomiting. No abdominal pain or diarrhea. PHYSICAL EXAMINATION: Blood pressure 120/70 with a pulse of 104, temperature 98.3. She is 94% on room air. General description is a middle-aged female up in the bed in no distress. Respiratory system: Unlabored breathing, decreased intensity of breath sounds. No wheeze. Heart S1, S2. Regular rate and rhythm. Abdomen is soft, no tenderness. LABS: Reviewed, blood culture negativeand collected . DIAGNOSTIC IMPRESSION AND PLAN: Patient with acute pneumonia, possible community-acquired. The patient has shown overall clinical improvement on the Rocephin and Zithromax. To continue to finish therapy with oral Ceftin 500 mg twice a day x 7 days .
--- NOTE | 2020-01-18 05:39 | CDI ---
Documentation Clarification Form Date: 01/18/2020 From: Elizabeth Ng Phone: If you have a question about this query, please contact Yamel Johnson, Roving Teller at [phone] between 8am and 5pm. Admit Date: 01/08/2020 Discharge Date: 01/12/2020 Patient Name: Maria Roger Visit Number: [id number] ATTENTION: The Clinical Documentation Specialists (CDI) and [facility] Coding Staff appreciate your assistance in clarifying documentation. Please respond to the clarification below the line at the bottom and electronically sign. The CDI & [facility] Coding staff will review the response and follow-up if needed. Please note: Queries are made part of the Legal Health Record. If you have any questions, please contact the author of this message via ITS. Dear Dr Shay Peters., Discharge summary stated "Acute bilateral interstitial pneumonia, possibly Covid 19 pneumonia, bilateral pneumonia. Covid testing was negative, could be a false negative Increased white blood count". Patient history/risk factor: Pneumonia, Sepsis, hx of nicotine dependence, Anxiety. Clinical Indicators: Fever, cough, Weakness. CXR: Smaller right lower lobe infiltrate with small effusion. COPD. Labs: Coronavirus SARS CoV-2-Not Detected. Treatment:: Rocephin and Zithromax to continue, continue with appropriate isolation until the MARKETING OPERATIONS INTERN swab is back In order to capture the severity of condition, please clarify if the above treatment/clinical indicators signify: COVID-19 Suspected COVID-19 ruled out COVID-19 confirmed Other, please specify Unable to determine COVID-19 Suspected MTDD
--- NOTE | 2020-01-26 06:05 | CDI ---
Documentation Clarification Form Date: 01/26/2020 From: Elizabeth Ng Phone: If you have a question about this query, please contact Yamel Johnson, Client Evaluator at [phone] between 8am and 5pm. Admit Date: 01/08/2020 Discharge Date: 01/12/2020 Patient Name: Maria Roger Visit Number: [id number] ATTENTION: The Clinical Documentation Specialists (CDI) and [facility] Coding Staff appreciate your assistance in clarifying documentation.Please respond to the clarification below the line at the bottom and electronically sign.The CDI [facility] Coding staff will review the response and follow-up if needed.Please note: Queries are made part of the Legal Health Record.If you have any questions, please contact the author of this message via ITS. Dear Dr Shay Peters. Discharge summary stated "Acute bilateral interstitial pneumonia, possibly Covid 19 pneumonia, bilateral pneumonia.Covid testing was negative, could be a false negative Increased white blood count". Patient history/risk factor: Pneumonia, Sepsis, hx of nicotine dependence, Anxiety. Clinical Indicators: Fever, cough, Weakness. CXR: Smaller right lower lobe infiltrate with small effusion.COPD. Labs: Coronavirus SARS CoV-2-Not Detected. Treatment:: Rocephin and Zithromax to continue, continue with appropriate isolation until the HEAD OF CONSERVATION swab is back In order to capture the severity of condition, please clarify if the above treatment/clinical indicators signify: False negative, treating for COVID-19 infection COVID-19 ruled out Other, please specify Unable to determine False negative, treating for COVID-19 infection MTDD
== END 2020-01-12 13:59 | disposition home or self-care (01) | DRG 871 ==
LOC: EC 11:40 → 4SSUR 14:44
PROVIDERS: ADMIT Hospitalist; ATTEND Hospitalist
DX: A41.9 Sepsis, unspecified organism (principal); U07.1 COVID-19; J12.89 Other viral pneumonia; E87.1 Hypo-osmolality and hyponatremia; J84.9 Interstitial pulmonary disease, unspecified; J90 Pleural effusion, not elsewhere classified; F41.0 Panic disorder [episodic paroxysmal anxiety]; F41.9 Anxiety disorder, unspecified; E07.9 Disorder of thyroid, unspecified; R79.89 Other specified abnormal findings of blood chemistry; R51 Headache; R59.0 Localized enlarged lymph nodes; R79.82 Elevated C-reactive protein (CRP); Z82.49 Family history of ischemic heart disease and other diseases of the circulatory system; Z88.2 Allergy status to sulfonamides; Z98.890 Other specified postprocedural states; Z87.891 Personal history of nicotine dependence
CPT/HCPCS: 36415; 71045; 71275; 80053; 80306; 81003; 82728; 83605; 83615; 83735; 84145; 84484; 85025; 85379; 85610; 85652; 85730; 86140; 87040; 87449; 93005; 93306; 94640; 96374; 96375; 99285